=== PATIENT | male | born 1995 | race African-American/Black ===

== ENCOUNTER 2020-04-06 16:12 | Emergency (ER) | payer BC, SELFPAY ==
[2020-04-06 16:20] VITALS: BP 156/80; PULSE 68; RESP 16; TEMP 36.6; O2SAT 100
--- NOTE | 2020-04-06 16:35 | ED.MALEGU ---
HPI - Male Genitourinary General Chief complaint: Urogenital-Male Stated complaint: std testing Time Seen by Provider: 04/06/20 16:35 Source: patient and RN notes reviewed Mode of arrival: ambulatory Limitations: no limitations History of Present Illness HPI Narrative: 24-year-old male who presents to [facility] care with complaints of possible exposure to STD. Patient states that his girlfriend stated she was being checked for BV he thinks and he is concerned about possible STD. Patient states that he has some burning and itching in his private area, denies any penile discharge or any testicular pain MD Complaint: other (burning and itching) Onset (ago): day(s) Related Data Allergies Allergy/AdvReac Type Severity Reaction Status Date / Time No Known Allergies Allergy Verified 04/06/20 16:53 Review of Systems Review of Systems: Narrative: CONSTITUTIONAL: Denies fever, chills, or sweats. EYES: Denies visual changes, redness, or discharge. ENT: Denies rhinorrhea, congestion, sore throat, or otalgia. CARDIOVASCULAR: Denies chest pain, palpitations, or edema. RESPIRATORY: Denies cough or dyspnea. GASTROINTESTINAL: Denies abdominal pain, nausea, vomiting, or diarrhea. GENITOURINARY: Denies dysuria or hematuria. SKIN: Denies rash states some burning and itching in perineal area MUSCULOSKELETAL: Denies back pain, joint pain, or myalgia. NEUROLOGIC: Denies headache, numbness, or weakness. PSYCHIATRIC: Denies anxiety or depression. All systems reviewed & are unremarkable except as noted in HPI and below PMFSH Past Medical History Medical History (Updated 04/06/20 @ 17:00 by Kanwal Love NP) Folliculitis Surgical History Surgical History (Updated 04/07/20 @ 18:28 by Kanwal Love NP) No pertinent past surgical history Social History Social History (Updated 04/06/20 @ 16:52 by Kanwal Love NP) Smoking status: Never smoker Substance use: never Gender identity (if verbalized by the patient): Male Comments At time of signature, agree with nursing past medical, surgical, social history. There is no relevant family history pertinent to the presenting complaint Exam Narrative: Exam Narrative: GENERAL: Well-appearing, well-nourished, and in no acute distress. HEAD: Normocephalic, atraumatic. EYES: PERRLA and EOMI. ENT: Nares clear, no rhinorrhea or epistaxis. Mucous membranes moist. NECK: Supple.no lymphadenopathy CHEST: Clear to auscultation. No respiratory distress. HEART: Regular rate and rhythm. No murmur heard. Normal peripheral pulses. ABDOMEN: Soft, nontender, nondistended, normal active bowel sounds. EXTREMITIES: Normal range of motion. No edema. SKIN: Warm, dry, some burning and itching perineal area at times NEURO: No focal deficits. Alert and oriented x3. Course Vital Signs Vital signs: Vital Signs Temperature 36.6 C 04/06/20 16:20 Pulse Rate 68 04/06/20 16:20 Respiratory Rate 16 04/06/20 16:20 Blood Pressure 156/80 H 04/06/20 16:20 Pulse Oximetry 100 04/06/20 16:20 Temperature 36.6 C 04/06/20 16:20 Pulse Rate 68 04/06/20 16:20 Respiratory Rate 16 04/06/20 16:20 Blood Pressure 156/80 H 04/06/20 16:20 Pulse Oximetry 100 04/06/20 16:20 MDM - Male Genitourinary MDM Narrative Medical decision making narrative: Patient received Rocephin 250 mg IM injection and azithromycin 100 mg po as treatment for GC and Chlamydia while in Clinic and RX for Flagyl given for trichomonas treatment, dirty urine sent for analysis Differential Diagnosis Differential diagnosis: Likely urinary tract infection, urethritis, epididymitis and other (STD) Medical Records Attestation: I reviewed the patient's medical records. Lab Data Attestation: I reviewed the patient's lab results. Lab results narrative: urine for GC, chlamydia, trichomonas and urine dip: Glucose negative, bilirubin negative, ketones trace negative specific gravity greater than or equal to 1.030 blood negative pH
[2020-04-06] MEDS: AZITHROMYCIN 250 MG TABLET 1000 MG PO (17:23)
[2020-04-06] MEDS: LIDOCAINE HCL 1% LOCAL INJ 20 ML VIAL IM (17:25)
== END 2020-04-06 17:45 | disposition home or self-care (01) ==
PROVIDERS: Emergency Provider Registered Nurse
DX: Z20.2 Contact with and (suspected) exposure to infections with a predominantly sexual mode of transmission (principal); R20.8 Other disturbances of skin sensation
CPT/HCPCS: 81003; 87086; 87491; 87591; 87661; 96372; 99213; A9270; G0463

== ENCOUNTER 2020-12-20 09:54 | Emergency (ER) | payer BC, SELFPAY ==
[2020-12-20 10:01] VITALS: BP 132/83; PULSE 71; RESP 14; TEMP 37.4; O2SAT 100
[2020-12-20 10:11] VITALS: BP 132/83; PULSE 71; RESP 14; TEMP 37.4; O2SAT 100
--- NOTE | 2020-12-20 10:29 | ED.MALEGU ---
HPI - Male Genitourinary General Chief complaint: Urogenital-Male Stated complaint: STD Test Time Seen by Provider: 12/20/20 10:29 Source: patient Mode of arrival: ambulatory Limitations: no limitations History of Present Illness HPI Narrative: Dylan Schuler is a 25 yo male with a complaint of possible STD exposure after grill he was with a week ago told him that she was positive for trichomoniasis. He is here for evaluation for STD and unsure if he wants to be treated with because he is asymptomatic Related Data Allergies Allergy/AdvReac Type Severity Reaction Status Date / Time No Known Allergies Allergy Verified 12/20/20 10:10 Review of Systems Review of Systems: Narrative: CONSTITUTIONAL: Denies fever, chills, sweats. EYES: Denies visual changes, redness, discharge. ENT: Denies rhinorrhea, congestion, sore throat, otalgia. CARDIOVASCULAR: Denies chest pain, palpitations, edema. RESPIRATORY: Denies dyspnea, wheezing, cough GASTROINTESTINAL: Denies abdominal pain, nausea, vomiting, diarrhea. GENITOURINARY: Denies dysuria, hematuria, abnormal discharge SKIN: Denies rash or itching. NEUROLOGIC: Denies numbness, or focal weakness. PSYCHIATRIC: Denies anxiety or depression. STD exposure. PMFSH Past Medical History Medical History Anxiety Depression Folliculitis Rectal bleeding Surgical History Surgical History No pertinent past surgical history Family History Family History Mother Hypertension Hyperthyroidism Grandparent Hypertension Cancer Grandparent Hypertension Cerebrovascular accident Grandparent Hyperthyroidism Diabetes mellitus Grandparent Hypertension Coronary artery disease Sibling Tachycardia Asthma Social History Social History Smoking status: Never smoker Alcohol intake: current Substance use: never Substance use type: does not use Gender identity (if verbalized by the patient): Male Comments At time of signature, I agree with nursing past medical, surgical, social and family history. There is no relevant family history pertinent to the presenting complaint. Exam Narrative: Exam Narrative: GENERAL: This is a well-nourished, well-developed patient, in mild distress. He is anxious HEAD: normocephalic, atraumatic. EYES: Sclera clear/white. Vision is grossly intact. EARS: External ears normal,. Hearing grossly intact. NOSE: External nose normal without nasal discharge, nares without redness, no rhinorrhea. THROAT: Mucous membranes moist, NECK: Neck supple, non-tender CARDIOVASCULAR: Regular rate and rhythm without murmurs, gallops, or rubs. RESPIRATORY: Clear to auscultation. Breath sounds equal bilaterally. No wheezes, rales, or rhonchi. GASTROINTESTINAL: Abdomen soft, non-tender, SKIN: warm, intact with no suspicious lesions or rash, good texture and turgor. NEURO: awake, alert, and oriented to person, place and time. There were no obvious focal neurologic abnormalities. Steady gait EXTREMITIES: Normal range of motion. BACK: Nontender without deformity Patient very anxious about natty STD, feels embarassed, discussed his feelings about this Course Course Emergency Course: Patient here for STD exposure girl that he was with is positive for trichomoniasis Patient agreed for testing of all 3 STDs, GC, chlamydia,,-we will treat for chlamydia only today Prescription for Flagyl 2 g sent to pharmacy Vital Signs Vital signs: Vital Signs Temperature 99.3 F 12/20/20 10:01 Pulse Rate 71 12/20/20 10:01 Respiratory Rate 14 12/20/20 10:01 Blood Pressure 132/83 12/20/20 10:01 Pulse Oximetry 100 12/20/20 10:01 Temperature 99.3 F 12/20/20 10:11 Pulse Rate 71 12/20/20 10:11 Respiratory Rate 14 12/20/20 10:11 Blood Pres
== END 2020-12-20 10:54 | disposition home or self-care (01) ==
PROVIDERS: Emergency Provider Nurse Practitioner; PCP Family Medicine
DX: Z20.2 Contact with and (suspected) exposure to infections with a predominantly sexual mode of transmission (principal)
CPT/HCPCS: 81003; 87491; 87591; 87661; 99213; G0463

== ENCOUNTER 2021-04-20 11:45 | Emergency (ER) | payer OTHER, SELFPAY ==
[2021-04-20 11:58] VITALS: BP 136/86; PULSE 71; RESP 18; TEMP 36.7; O2SAT 100
--- NOTE | 2021-04-20 12:42 | ED.MALEGU ---
HPI - Male Genitourinary General Chief complaint: Urogenital-Male Stated complaint: Male Urogenital Source: patient Mode of arrival: ambulatory Limitations: no limitations History of Present Illness HPI Narrative: Patient is a 25-year-old male who presents with complaints of lesions penis. He reports burning and irritation to shaft of penis. Patient reports lesions appear to be healed, however, he is requesting STD testing as he has a new partner. Patient also reports he is using a soap and he believes his partner was recently last and feels that the stubble of added to the irritation. He denies significant medical history. He denies all other complaints at this time. MD Complaint: possible STD exposure Related Data Allergies Allergy/AdvReac Type Severity Reaction Status Date / Time No Known Allergies Allergy Verified 12/20/20 10:10 Review of Systems Review of Systems: CONSTITUTIONAL: Denies fever, chills, or sweats. EYES: Denies visual changes, redness, or discharge. ENT: Denies rhinorrhea, congestion, sore throat, or otalgia. CARDIOVASCULAR: Denies chest pain, palpitations, or edema. RESPIRATORY: Denies cough or dyspnea. GASTROINTESTINAL: Denies abdominal pain, nausea, vomiting, or diarrhea. GENITOURINARY: Reports lesions to penis SKIN: Denies rash or itching. MUSCULOSKELETAL: Denies back pain, joint pain, or myalgia. NEUROLOGIC: Denies headache, numbness, dizziness, or weakness. PSYCHIATRIC: Denies anxiety or depression. [facility] Past Medical History Medical History Anxiety Depression Folliculitis Rectal bleeding Surgical History Surgical History No pertinent past surgical history Family History Family History Mother Hypertension Hyperthyroidism Grandparent Hypertension Cancer Grandparent Hypertension Cerebrovascular accident Grandparent Hyperthyroidism Diabetes mellitus Grandparent Hypertension Coronary artery disease Sibling Tachycardia Asthma Social History Social History Smoking status: Never smoker Alcohol intake: current Alcohol use details: 1 or 2 drinks a month Substance use: never Substance use type: does not use Gender identity (if verbalized by the patient): Male Comments At the time of signature, I have reviewed and agree with nursing past medical, surgical, social, and family history unless otherwise noted. Please see nursing chart for further information. There is no relevant family history pertinent to the presenting complaint. Exam Narrative: GENERAL: Well-appearing, well-nourished, and in no acute distress. HEAD: Normocephalic, atraumatic. EYES: EOMI. No redness or drainage. ENT: Mucous membranes pink and moist. CHEST: No respiratory distress. HEART: Regular rate and rhythm. EXTREMITIES: Normal range of motion. No edema. : No lesions or penile discharge noted. Patient appears to have a healed area of skin to dorsal penis. SKIN: Warm, dry, no rash. NEURO: No focal deficits. Alert and oriented x3. Gait steady. PSYCH: Normal affect. No signs of depression or anxiety. Course Vital Signs Vital signs: Vital Signs Temperature 36.7 C 04/20/21 11:58 Pulse Rate 71 04/20/21 11:58 Respiratory Rate 18 04/20/21 11:58 Blood Pressure 136/86 04/20/21 11:58 Pulse Oximetry 100 04/20/21 11:58 Temperature 36.7 C 04/20/21 11:58 Pulse Rate 71 04/20/21 11:58 Respiratory Rate 18 04/20/21 11:58 Blood Pressure 136/86 04/20/21 11:58 Pulse Oximetry 100 04/20/21 11:58 Reviewed. Patient has been instructed to follow-up with his PCP regarding his blood pressure. MDM - Male Genitourinary MDM Narrative Medical decision making narrative: Discussed with patient STD testing and the need to follow-up with Mad
== END 2021-04-20 13:05 | disposition home or self-care (01) ==
PROVIDERS: Emergency Provider Nurse Practitioner
DX: Z20.2 Contact with and (suspected) exposure to infections with a predominantly sexual mode of transmission (principal)
CPT/HCPCS: 87491; 87591; 87661; 99213; G0463